=== PATIENT | male | born 1995 | race Asian ===

== ENCOUNTER 2022-03-22 10:26 | Emergency (ER) | payer SELFPAY ==
[~2022-03-22] VITALS: Ht 175.3 cm; Wt 81.8 kg
[~2022-03-22 10:26] MED LIST: NO MEDS
[2022-03-22] MEDS ORDERED: ACET-2247 PO (10:30)
[2022-03-22] MEDS ORDERED: PENI500T2 PO (11:54)
[2022-03-22] MEDS ORDERED: PERCT PO (11:54)
[2022-03-22 12:12] VITALS: BP 143/92
== END 2022-03-22 12:36 | disposition home or self-care (01) ==
LOC: EMS 10:26
DX: K04.7 Periapical abscess without sinus (principal); K02.9 Dental caries, unspecified; Z79.899 Other long term (current) drug therapy
CPT/HCPCS: 99283